=== PATIENT | female | born 1960 ===

== ENCOUNTER 2020-09-04 20:08 | Emergency (ER) | payer SELFPAY ==
[2020-09-04 20:36] LABS: Absolute Lymphocytes (CBC) 3.9 K/uL (0.7-4.9); Basophils % 0.8 % (0-1.3); Hematocrit 40.4 % (36.0-45.0); Lymphocytes % 39.5 % (15.3-44.8); MPV 8.7 fL (7.6-11.3)
[2020-09-04] MEDS ORDERED: MORPHINE 4 MG/ML SYR ONE (20:39)
[2020-09-04] MEDS ORDERED: ONDANSETRON 4 MG/2 ML VIAL ONE (20:39)
[2020-09-04] MEDS ORDERED: NA CHLORIDE 0.9% 1,000 ML ONE (20:40)
[2020-09-04 20:41] LABS: Protime INR 0.91
[2020-09-04 20:41] LABS: Urine Blood Negative (Negative); Urine Glucose Negative (Negative); Urine Protein Negative (Negative); Urine Specific Gravity <=1.005 (1.005-1.030)
[2020-09-04] MEDS ORDERED: FAMOTIDINE 20 MG/2 ML VIAL IV ONE (20:44)
[2020-09-04 20:51] LABS: ALT/SGPT 32 U/L (12-78); AST/SGOT 23 U/L (15-37); Albumin 3.3 g/dL (3.4-5.0); Alkaline Phosphatase 79 U/L (45-117); BUN Blood Urea Nitrogen 7 mg/dL (7-18); Bicarbonate 20 mmol/L (21-32); Bilirubin Direct 0.1 mg/dL (0-0.2); Bilirubin Total 0.3 mg/dL (0.2-1.0); Glucose Level 120 mg/dL (74-106); Lipase 124 U/L (73-393); Potassium 3.5 mmol/L (3.5-5.1); Protein, Total 7.4 g/dL (6.4-8.2); Sodium Level 137 mmol/L (136-145); Troponin I < 0.02 ng/mL (0.0-0.045)
[2020-09-04 21:17] LABS: Barbiturates NEGATIVE (NEGATIVE); Benzodiazepines NEGATIVE (NEGATIVE); Cocaine NEGATIVE (NEGATIVE); METHAMPHETAM NEGATIVE (NEGATIVE); Methadone NEGATIVE (NEGATIVE); Opiates NEGATIVE (NEGATIVE); Phencyclidine NEGATIVE (NEGATIVE); THC Cannibis NEGATIVE (NEGATIVE)
[2020-09-04 21:59] LABS: Urine Specific Gravity/Preg <1.005 (1.005-1.030)
--- NOTE | 2020-09-04 22:19 | ER ---
Nurse's Notes [facility] Name: Julia Vitale Age: 59 yrs Sex: Female : 1960 Arrival Date: 09/04/2020 Time: 20:10 Bed 3 Private MD: Diagnosis: Presentation: 09/04 20:10 Chief complaint: EMS states: Pt was eating dinner had a few drinks, developed sharp wh left sided abdominal pain, Pt states Hx of Pancreatic Cancer. Pt en route was unresponsive for a few minutes per EMS and was tachycardic and hypotensive, LR started. Coronavirus screen: Client denies travel out of the [place] in the last 14 days. At this time, the client does not indicate any symptoms associated with coronavirus-19. Ebola Screen: Patient negative for fever greater than or equal to 101.5 degrees Fahrenheit, and additional compatible Ebola Virus Disease symptoms Patient denies exposure to infectious person. Initial Sepsis Screen: Does the patient meet any 2 criteria? HR > 90 bpm. Does the patient have a suspected source of infection? Yes: Acute abdominal pain. Risk Assessment: Do you want to hurt yourself or someone else? Patient reports no desire to harm self or others. Onset of symptoms was September 04, 2020. 20:10 Method Of Arrival: EMS: [facility] 20:10 Acuity: JABARI 3 20:10 Care prior to arrival: Medication(s) given: LR bolus IV initiated. 18 GA, in the left wh in the right forearm. Historical: - Allergies: 20:14 Demerol; - PMHx: 20:14 Pancreatic Cancer; - PSHx: 20:14 Cholecystectomy; wh - Immunization history:: Adult Immunizations unknown. - Social history:: Smoking status: unknown. Screenin:14 Abuse screen: Denies threats or abuse. Denies injuries from another. Nutritional screening: No deficits noted. Tuberculosis screening: No symptoms or risk factors identified. Fall Risk None identified. Assessment: 20:16 General: Appears uncomfortable, Behavior is cooperative. Pain: Complains of pain in left upper quadrant and left lower quadrant Pain radiates to back Pain currently is 9 out of 10 on a pain scale. Quality of pain is described as sharp, Pain began suddenly. Neuro: Level of Consciousness is awake, alert, obeys commands, Oriented to person, place, time, situation, Appropriate for age. Cardiovascular: Capillary refill < 3 seconds. Respiratory: Airway is patent Respiratory effort is even, unlabored, Respiratory pattern is regular, symmetrical. GI: Abdomen is flat, non-distended, Abd is soft Abdomen is tender to palpation in left upper quadrant and left lower quadrant Reports lower abdominal pain, upper abdominal pain. : No signs and/or symptoms were reported regarding the genitourinary system. EENT: No signs and/or symptoms were reported regarding the EENT system. Derm: Skin is intact, is healthy with good turgor, Skin is pink, warm \T\ dry. normal. Musculoskeletal: Circulation, motion, and sensation intact. 21:00 Reassessment: Patient appears in no apparent distress at this time. No changes from previously documented assessment. Patient and/or family updated on plan of care and expected duration. Pain level reassessed. Patient is alert, oriented x 3, equal unlabored respirations, skin warm/dry/pink. 22:00 Reassessment: Pt was discovered not on her room, notified Provider Pt eloped, tried calling Pt Sister with no answer. 22:07 General: patient was not in the room. . mg2 22:14 Reassessment: registration said she saw the patient picked up by her sister and they mg2 both walked out from ED. tried calling her number-sister's number but no answer. provider informed. charge nurse informed and also advised we can call the heavy duty mechanic farm equipment to search for her because she left with IV on. Vital Signs: 20:10 BP 129 / 95; Pulse 109; Resp 16; Temp 97.7; Pulse Ox 98% ; Weight 72.57 kg; Height 5 wh ft. 6 in. (167.64 cm); Pain 9/10; 21:31 BP 137 / 80; Pulse 94; Resp 18; Pulse Ox 99% on R/A; mg2 20:10 Body Mass Index 25.82 (72.57 kg, 167.64 cm) ED Course: 20:10 Patient arrived in ED. wh 20:14 Triage completed. wh 20:15 Dong Cantu MD is Attending Physician. 7 20:16 Patient has correct armband on for positive identification. Placed in gown. Bed in low wh position. Call light in reach. Side rails up X 1. night monitor on. Pulse ox on. NIBP on. 20:17 Arm band placed on right wrist. 20:17 Maintain EMS IV. Dressing intact. Good blood return noted. 20:25 Heavenly Garcia, RN is Primary Nurse. 21:32 CT Abd/Pelvis - IV Contrast Only In Process Unspecified. EDMS Administered Medications: 20:24 Drug: NS 0.9% 1000 ml Route: IV; Rate: 1000 ml; Site: right forearm; mg2 20:24 Drug: morphine 4 mg Route: IVP; Site: right forearm; mg2 20:24 Drug: Zofran (Ondansetron) 4 mg Route: IVP; Site: right forearm; mg2 20:24 Drug: Pepcid (famotidine) 20 mg Route: IVP; Site: right forearm; mg2 Outcome: 22:16 Eloped from patient exam room, after seeing physician Time discovered patient gone: September 04, 2020 at 22:00 22:16 Condition: stable 22:19 Patient left the ED. mg2 Signatures: Dispatcher [employer] EDMS Heavenly Garcia, CRISTELA RN Derrell Castellano RN RN mg2 Dong Cantu MD MD mh7 Corrections: (The following items were deleted from the chart) 20:15 20:10 Pulse 109bpm; Resp 16bpm; Pulse Ox 98%; Temp 97.7F; 72.57 kg; Height 5 ft. 6 in.; BMI: 25.8; Pain 9/10;
--- NOTE | 2020-09-04 22:20 | EDPHYS ---
Physician Documentation [facility] Name: Julia Vitale Age: 59 yrs Sex: Female : 1960 Arrival Date: 09/04/2020 Time: 20:10 Bed 3 Private MD: ED Physician Dong Cantu HPI: 09/04 20:28 This 59 yrs old Female presents to ER via EMS with complaints of Abdominal pain. mh7 20:28 The patient presents with abdominal pain in the left upper quadrant, in the left lower mh7 quadrant. Onset: The symptoms/episode began/occurred just prior to arrival, today. The symptoms radiate to the left flank. 20:30 Associated signs and symptoms: Pertinent negatives: nausea, vomiting, and diarrhea, mh7 nausea and vomiting, anorexia, blood in stools, chest pain, constipation, diarrhea, dysuria, fever, headache, hematuria, nausea, palpitations, shortness of breath, vaginal discharge, vomiting, vomiting blood. The symptoms are described as intermittent, vague, waxing/waning. Modifying factors: The symptoms are alleviated by nothing, the symptoms are aggravated by alcohol. Severity of pain: At its worst the pain was moderate just prior to arrival, today, in the emergency department the pain is unchanged despite EMS interventions. Historical: - Allergies: 20:14 Demerol; wh - PMHx: 20:14 Pancreatic Cancer; - PSHx: 20:14 Cholecystectomy; - Immunization history:: Adult Immunizations unknown. - Social history:: Smoking status: unknown. ROS: 20:30 Constitutional: Negative for fever, chills, and weight loss, Eyes: Negative for injury, mh7 pain, redness, and discharge, ENT: Negative for injury, pain, and discharge, Neck: Negative for injury, pain, and swelling, Cardiovascular: Negative for chest pain, palpitations, and edema, Respiratory: Negative for shortness of breath, cough, wheezing, and pleuritic chest pain, : Negative for injury, bleeding, discharge, and swelling, MS/Extremity: Negative for injury and deformity, Skin: Negative for injury, rash, and discoloration, Neuro: Negative for headache, weakness, numbness, tingling, and seizure, Psych: Negative for depression, anxiety, suicide ideation, homicidal ideation, and hallucinations, Allergy/Immunology: Negative for hives, rash, and allergies, Endocrine: Negative for neck swelling, polydipsia, polyuria, polyphagia, and marked weight changes, Hematologic/Lymphatic: Negative for swollen nodes, abnormal bleeding, and unusual bruising. Exam: 20:30 Head/Face: Normocephalic, atraumatic. Eyes: Pupils equal round and reactive to light, mh7 extra-ocular motions intact. Lids and lashes normal. Conjunctiva and sclera are non-icteric and not injected. Cornea within normal limits. Periorbital areas with no swelling, redness, or edema. Neck: Trachea midline, no thyromegaly or masses palpated, and no cervical lymphadenopathy. Supple, full range of motion without nuchal rigidity, or vertebral point tenderness. No Meningismus. Chest/axilla: Normal chest wall appearance and motion. Nontender with no deformity. No lesions are appreciated. 20:30 Respiratory: Lungs have equal breath sounds bilaterally, clear to auscultation and percussion. No rales, rhonchi or wheezes noted. No increased work of breathing, no retractions or nasal flaring. 20:30 Back: No spinal tenderness. No costovertebral tenderness. Full range of motion. Skin: Warm, dry with normal turgor. Normal color with no rashes, no lesions, and no evidence of cellulitis. MS/ Extremity: Pulses equal, no cyanosis. Neurovascular intact. Full, normal range of motion. Neuro: Awake and alert, GCS 15, oriented to person, place, time, and situation. Cranial nerves II-XII grossly intact. Motor strength 5/5 in all extremities. Sensory grossly intact. Cerebellar exam normal. Normal gait. 20:30 Constitutional: The patient appears in no acute distress, alert, awake, anxious, uncomfortable. 20:30 Cardiovascular: Rate: tachycardic, Rhythm: regular, Pulses: no pulse deficits are appreciated, Heart sounds: normal, normal S1and S2, Edema: is not appreciated, JVD: is not appreciated. 20:30 Abdomen/GI: Inspection: obese Bowel sounds: normal, in all quadrants, Palpation: moderate abdominal tenderness, in the left lower quadrant and left upper quadrant, mass, is not appreciated, rebound tenderness, is not appreciated, voluntary guarding, is not appreciated, involuntary guarding, is not appreciated, no appreciated organomegaly, Rectal exam: the exam is deferred, because of patient request, Indicators: McBurney's point is not tender, Yen's sign is negative, Rovsing's sign is negative, Obturator sign is negative, Psoas sign is negative, Liver: no appreciated palpable abnormalities, Hernia: not appreciated. 20:30 Psych: Behavior/mood is anxious, Affect is calm, Oriented to person, place, time, Patient has no thoughts/intents to harm self or others. Judgement / Insight is normal. Memory is normal. Delusions/hallucinations are not present. Vital Signs: 20:10 BP 129 / 95; Pulse 109; Resp 16; Temp 97.7; Pulse Ox 98% ; Weight 72.57 kg; Height 5 wh ft. 6 in. (167.64 cm); Pain 9/10; 21:31 BP 137 / 80; Pulse 94; Resp 18; Pulse Ox 99% on R/A; mg2 20:10 Body Mass Index 25.82 (72.57 kg, 167.64 cm) MDM: 22:30 Differential diagnosis: bowel obstruction, diverticulitis, gastritis, gastroesophageal mh7 reflux disease, non-specific abd pain, pancreatitis, Peptic Ulcer Disease, Perf. Duodenal Ulcer, Perf. Gastric Ulcer, Pyelonephritis, Ureterolithiasis, urinary tract infection. Data reviewed: vital signs, nurses notes, EMS record, lab test result(s), cardiac enzymes, CBC, electrolytes, urinalysis, EKG, radiologic studies, CT scan. Data interpreted: Pulse oximetry: on room air is 99 %. Interpretation: normal. 22:30 ED course: Informed by nursing staff that patient eloped from the ED.. [facility] 22:32 Patient medically screened. [facility] 09/04 20:16 Order name: Basic Metabolic Panel 09/04 20:16 Order name: CBC with Diff; Complete Time: 21:47 09/04 20:16 Order name: Hepatic Function 09/04 20:16 Order name: Lipase; Complete Time: 21:47 09/04 20:16 Order name: Basic Metabolic Panel; Complete Time: 21:47 [facility] 09/04 20:16 Order name: Liver (Hepatic) Function; Complete Time: 21:47 [facility] 09/04 20:22 Order name: UDS; Complete Time: 21:47 [facility] 09/04 20:23 Order name: ETOH Level; Complete Time: 21:47 [facility] 09/04 20:24 Order name: Protime (+inr) [facility] 09/04 20:24 Order name: Ptt, Activated [facility] 09/04 20:24 Order name: Protime (+INR); Complete Time: 21:47 [facility] 09/04 20:24 Order name: PTT, Activated Partial Thromb; Complete Time: 21:47 [facility] 09/04 20:30 Order name: Glucose, Ancillary Testing; Complete Time: 21:47 [facility] 09/04 20:16 Order name: IV Saline Lock; Complete Time: 20:25 09/04 20:16 Order name: Labs collected and sent; Complete Time: 20: 09/04 20:22 Order name: Urine Dipstick-Ancillary (obtain specimen); Complete Time: 20:59 [facility] 09/04 20:23 Order name: EKG - Nurse/Tech; Complete Time: 20:25 [facility] 09/04 20:23 Order name: CT Abd/Pelvis - IV Contrast Only [facility] 09/04 20:34 Order name: Troponin I; Complete Time: 21:47 [facility] 09/04 20:41 Order name: Urine Dipstick-Ancillary; Complete Time: 21:47 [facility] 09/04 20:49 Order name: Urine --Ancillary (enter results); Complete Time: 22:14 tt3 Administered Medications: 20:24 Drug: NS 0.9% 1000 ml Route: IV; Rate: 1000 ml; Site: right forearm; mg2 20:24 Drug: morphine 4 mg Route: IVP; Site: right forearm; mg2 20:24 Drug: Zofran (Ondansetron) 4 mg Route: IVP; Site: right forearm; mg2 20:24 Drug: Pepcid (famotidine) 20 mg Route: IVP; Site: right forearm; mg2 Disposition: 09/04/20 22:19 Patient left the facility after being seen by provider. - Patient left due to (see nurse's notes). Signatures: Dispatcher [employer] EDMS Heavenly Garcia RN RN Derrell Castellano RN RN mg2 Dong Cantu MD MD 7 Corrections: (The following items were deleted from the chart) 20:34 20:31 TROPONIN (EMERG DEPT USE ONLY)+[id number] ordered. EDMS EDMS
[2020-09-04 22:33] VITALS: TEMP 97.7
[2020-09-04 22:35] VITALS: BP 137/80; O2SAT 99
--- NOTE | 2020-09-05 10:25 | RAD REPORT ---
EXAM DESCRIPTION: CT ABDOMEN PELVIS WITH IV CONTRAST CLINICAL HISTORY: ABD PAIN. COMPARISON: None. TECHNIQUE: CT of the abdomen and pelvis was performed following intravenous administration of iodina cole contrast. Arterial phase images through the abdomen and portal venous phase images through the ab domen and pelvis were obtained. Oral contrast was not administered. Axial, coronal, and sagittal soft tissue window reconstructions were created and sent to PACS. This exam was performed according to our departmental dose-optimization program, which includes autom ated exposure control, adjustment of the mA and/or kV according to patient size and/or use of iterati ve reconstruction technique. FINDINGS: Thoracic: No significant abnormality. Hepatobiliary: No concerning hepatic lesion identified. The hepatic and portal veins are patent. The gallbladder is surgically absent. Mild central intrahepatic biliary prominence. Mild prominence of th e common bile duct, measuring up to 0.8 cm. Findings are favored postsurgical and senescent in etiolo gy. Pancreas: Unremarkable. Spleen: Unremarkable. Gastrointestinal: No evidence of bowel obstruction or perienteric inflammation. The appendix is dimitrios l. Small to moderate amount of fecal material in the colon. Adrenals: No abnormality identified in either adrenal gland. Renal: No concerning parenchymal abnormality in either kidney. No hydronephrosis or urolithiasis. Bladder/Reproductive: Unremarkable appearance of the urinary bladder by CT technique. Vascular/Lymphatics: No lymphadenopathy identified by CT size criteria. Abdominal aorta is normal in caliber. Moderate mixed atherosclerosis. Musculoskeletal: No concerning osseous lesion identified. Chronic large Schmorl's node superior endpl ate of L4. Fluid / peritoneum: No significant free fluid. No free intraperitoneal air identified. IMPRESSION 1. No acute abdominal or pelvic pathology identified. 2. Cholecystectomy with mild intrahepatic and extrahepatic biliary prominence, favored postsurgical and senescent in etiology. 3. Small to moderate amount of fecal material in the colon. Electronically signed by: Alisha Peguero MD 09/04/2020 9:52 PM CDT Due to temporary technical issues with the PACS/Fluency reporting system, reports are being signed by the in house radiologist without review as a courtesy to ensure prompt reporting. The interpreting r adiologist is fully responsible for the content of the report.
--- NOTE | 2020-09-05 10:47 | EKG ---
Test Date: 2020-09-04 Test Time: 20:23:18 [employer] W[employer] Tender: MEASUREMENT RESULTS: Intervals: Rate: 108 [place]: 152 QRSD: 80 QT: 368 QTc: 493 [place]: P: 74 NJ: 152 QRS: 62 T: 72 INTERPRETIVE STATEMENTS: Sinus tachycardia with occasional premature ventricular complexes Right atrial enlargement Borderline ECG No previous ECG available for comparison Electronically Signed On 09-05-20 10:46:36 CDT by Nasir Roa
== END 2020-09-04 22:19 | disposition left against medical advice (07) ==
LOC: EDBD 20:08 → ER 20:08
DX: R10.32 Left lower quadrant pain (principal); Z85.07 Personal history of malignant neoplasm of pancreas; Z88.5 Allergy status to narcotic agent
CPT/HCPCS: 36415; 74177; 80048; 80076; 80307; 80320; 81003; 81025; 82947; 83690; 84484; 85025; 85610; 85730; 93005; 96374; 96375; 99284; J2405; J7030; Q9967